=== PATIENT | male | born 1935 | race Caucasian/White ===

== ENCOUNTER 2017-06-30 14:26 | Observation (INO) | payer MEDICARE, OTHER ==
[~2017-06-30] VITALS: Ht 188 cm; Wt 87.9 kg
[2017-06-30 14:30] VITALS: BP 110/76; PULSE 102; RESP 18; TEMP 103; O2SAT 94
[2017-06-30] MEDS ORDERED: SODIUM CHLOR 0.9% 1000 ML INJ 1,000 ML IV ONE (14:30)
--- NOTE | 2017-06-30 14:34 | PD ---
HPI Chief Complaint: fever Time Seen by Provider: 14:29 Travel History International Travel<30 days: No Contact w/Intl Traveler<30days: No Traveled to known affect area: No History of Present Illness HPI This 81-year-old male comes by ambulance. He has been having fever for a couple of days. He has had a cough. He has had urinary tract infections past. He's been feeling very weak. He was brought by paramedics report that he had trouble walking. He has a history of atrial fibrillation and is on Eliquis. He lives in [place] does not have a local doctor. He says he has felt confused at times. He says he may have had a stroke in 2003. He says he has not been eating. He has not been able to stand up for the last day or so. He says when he does try to stand up he gets very dizzy. PFSH Social History Tobacco Use: No Allergies-Medications (Allergen,Severity, Reaction): Coded Allergies: No Known Allergies (Unverified , 06/30/17) Reported Meds & Prescriptions Reported Meds & Active Scripts Active Reported Terazosin (Terazosin HCl) 5 Mg Cap 5 Mg PO HS Pravastatin 40 Mg Tab 40 Mg PO DAILY Diltiazem CD 24 HR 120 Mg Caper 120 Mg PO DAILY Eliquis (Apixaban) 2.5 Mg Tab 2.5 Mg PO BID Carvedilol 12.5 Mg Tab 12.5 Mg PO BID Review of Systems General / Constitutional: Positive: Fever, Chills Eyes: No: Diploplia, Blurred Vision HENT: No: Headaches, Vertigo Cardiovascular: No: Chest Pain or Discomfort Respiratory: Positive: Cough, No: Shortness of Breath Gastrointestinal: No: Vomiting, Diarrhea Genitourinary: No: Urgency Musculoskeletal: No: Myalgias Skin: No Rash Neurologic: Positive: Weakness Hematologic/Lymphatic: No: Easy Bruising Physical Exam Narrative GENERAL: Well-developed male. Temp is 103 SKIN: Focused skin assessment warm/dry. HEAD: Atraumatic. Normocephalic. EYES: Pupils equal and round. No scleral icterus. No injection or drainage. ENT: No nasal bleeding or discharge. Mucous membranes pink and moist. NECK: Trachea midline. No JVD. CARDIOVASCULAR: Regular rate and rhythm. No murmur appreciated. RESPIRATORY: No accessory muscle use. Clear to auscultation. Breath sounds equal bilaterally. GASTROINTESTINAL: Abdomen soft, non-tender, nondistended. Hepatic and splenic margins not palpable. MUSCULOSKELETAL: No obvious deformities. No clubbing. No cyanosis. No edema. There is some weakness of the left hand. He has a history of a laceration to the hand with tendon injury NEUROLOGICAL: Awake and alert. No obvious cranial nerve deficits. Motor grossly within normal limits. Normal speech. PSYCHIATRIC: Appropriate mood and affect; insight and judgment normal. He is oriented Data Data Last Documented VS Vital Signs Date Time Temp Pulse Resp B/P (MAP) Pulse Ox O2 Delivery O2 Flow Rate FiO2 06/30/17 15:15 103.0 103 16 110/75 (87) 98 Nasal Cannula 2.00 Orders Orders Sepsis Workup Initiated (06/30/17 ) Complete Blood Count With Diff (06/30/17 14:29) Comprehensive Metabolic Panel (06/30/17 14:29) Lactic Acid Sepsis Protocol (06/30/17 14:29) Urinalysis - C+S If Indicated (06/30/17 14:29) Influenzae A/B Antigen (06/30/17 14:29) Blood Culture (06/30/17 14:29) Chest, Single Ap (06/30/17 14:29) Blood Glucose (06/30/17 14:29) Ecg Monitoring (06/30/17 14:29) Iv Access Insert/Monitor (06/30/17 14:29) Oximetry (06/30/17 14:29) Oxygen Administration (06/30/17 14:29) Sodium Chlor 0.9% 1000 Ml Inj (Ns 1000 M (06/30/17 14:30) Acetaminophen (Tylenol) (06/30/17 14:45) Ct Brain W/O Iv Contrast(Rout) (06/30/17 15:04) Ct Thorax/ Chest Wo Iv Contras (06/30/17 15:31) Oseltamivir (Tamiflu) (06/30/17 15:45) Labs Laboratory Tests Test 06/30/17 14:35 06/30/17 14:46 White Blood Count 5.6 TH/MM3 Red Blood Count 4.48 MIL/MM3 Hemoglobin 13.7 GM/DL Hematocrit 40.6 % Mean Corpuscular Volume 90.8 FL Mean Corpuscular Hemoglobin 30.7 PG Mean Corpuscular Hemoglobin Concent 33.8 % Red Cell Distribution Width 13.5 % Platelet Count 111 TH/MM3 Mean Platelet Volume 8.8 FL Neutrophils (%) (Auto) 68.6 % Lymphocytes (%) (Auto) 17.0 % Monocytes (%) (Auto) 13.7 % Eosinophils (%) (Auto) 0.1 % Basophils (%) (Auto) 0.6 % Neutrophils # (Auto) 3.9 TH/MM3 Lymphocytes # (Auto) 0.9 TH/MM3 Monocytes # (Auto) 0.8 TH/MM3 Eosinophils # (Auto) 0.0 TH/MM3 Basophils # (Auto) 0.0 TH/MM3 CBC Comment DIFF FINAL Differential Comment Blood Urea Nitrogen 15 MG/DL Creatinine 0.89 MG/DL Random Glucose 107 MG/DL Total Protein 6.6 GM/DL Albumin 3.2 GM/DL Calcium Level 7.8 MG/DL Alkaline Phosphatase 51 U/L Aspartate Amino Transf (AST/SGOT) 27 U/L Alanine Aminotransferase (ALT/SGPT) 22 U/L Total Bilirubin 0.8 MG/DL Sodium Level 136 MEQ/L Potassium Level 4.1 MEQ/L Chloride Level 105 MEQ/L Carbon Dioxide Level 22.2 MEQ/L Anion Gap 9 MEQ/L Estimat Glomerular Filtration Rate 82 ML/MIN Lactic Acid Level 1.5 mmol/L Urine Collection Type VOIDED Urine Color YELLOW Urine Turbidity CLEAR Urine pH 6.0 Urine Specific [place] 1.024 Urine Protein TRACE mg/dL Urine Glucose (UA) NEG mg/dL Urine Ketones 15 mg/dL Urine Occult Blood SMALL Urine Nitrite NEG Urine Bilirubin NEG Urine Leukocyte Esterase NEG Urine WBC 3-5 /hpf Urine Squamous Epithelial Cells 0-2 /hpf Urine Mucus FEW /lpf Microscopic Urinalysis Comment CULT NOT INDICATED MDM Medical Decision Making Medical Screen Exam Complete: Yes Emergency Medical Condition: Yes Medical Record Reviewed: Yes Differential Diagnosis Differential includes influenza, delirium, pneumonia, sepsis Narrative Course Hemoglobin is 13 7 with a white count of 5000 BUNs is 15 with creatinine of 0.89. Urinalysis shows 3-5 white cells. Chest x-ray showed bilateral patchy densities it is thought this may represent pleural plaques, CT is recommended. of note his influenza A test is positive. Patient has been given Tamiflu. I don't see evidence of a bacterial infection but his fever is causing delirium and prostration. He will be admitted for fluids and observation Diagnosis Primary Impression: Influenza A Additional Impression: Delirium due to general medical condition Admitting Information Admitting Physician Requests: Observation Jeb Kyle MD Jun 30, 2017 14:34
[2017-06-30] MEDS ORDERED: ACETAMINOPHEN 325 MG TAB PO ONE (14:45)
[2017-06-30 14:52] VITALS: O2SAT 95
[2017-06-30 14:52] LABS: AUTOMATED NEUTROPHIL # 3.9 TH/MM3 (1.8-7.7); BASOPHIL % 0.6 % (0.0-2.0); EOSINOPHIL % 0.1 % (0.0-4.0); HEMATOCRIT 40.6 % (39.0-51.0); HEMO FLAGS DIFF FINAL; LYMPHOCYTE # 0.9 TH/MM3 (1.0-4.8); MEAN CELL VOLUME 90.8 FL (80.0-100.0); MEAN CORPUSCULAR HEMOGLOBIN 30.7 PG (27.0-34.0); MEAN CORPUSCULAR HGB CONC 33.8 % (32.0-36.0); MONO % 13.7 % (0.0-8.0); NEUT % 68.6 % (16.0-70.0); PLATELET COUNT 111 TH/MM3 (150-450); RED BLOOD COUNT 4.48 MIL/MM3 (4.50-5.90); RED CELL DISTRIBUTION WIDTH 13.5 % (11.6-17.2); WHITE BLOOD COUNT 5.6 TH/MM3 (4.0-11.0)
[2017-06-30 14:56] LABS: BLOOD, URINE SMALL (NEG); GLUCOSE,URINE NEG (NEG); KETONE, URINE 15 mg/dL (NEG); NITRITE,URINE NEG (NEG)
[2017-06-30 14:56] LABS: CHLORIDE 105 MEQ/L (98-107); POTASSIUM 4.1 MEQ/L (3.5-5.1); SODIUM (NA) 136 MEQ/L (136-145)
[2017-06-30 15:00] LABS: ANION GAP 9 MEQ/L (5-15); BICARBONATE 22.2 MEQ/L (21.0-32.0); BLOOD UREA NITROGEN 15 MG/DL (7-18)
[2017-06-30 15:03] LABS: ALT (GPT) 22 U/L (12-78); AST (GOT) 27 U/L (15-37); GLOMERULAR FILTRATION RATE 82 ML/MIN (>89)
[2017-06-30 15:05] LABS: TOTAL BILIRUBIN ADULT 0.8 MG/DL (0.2-1.0)
[2017-06-30 15:06] LABS: ALKALINE PHOSPHATASE 51 U/L (45-117)
[2017-06-30] MEDS ORDERED: CARV12.52 PO (15:13)
[2017-06-30] MEDS ORDERED: PRAV40TA2 PO (15:13)
[2017-06-30] MEDS ORDERED: DILT120C50 PO (15:13)
[2017-06-30] MEDS ORDERED: APIX2.5T PO (15:13)
[2017-06-30] MEDS ORDERED: TERA5CAP3 PO (15:13)
[2017-06-30 15:15] VITALS: BP 110/75; PULSE 103; RESP 16; TEMP 103; O2SAT 98
[2017-06-30 15:15] LABS: URINE COLOR YELLOW (YELLW/STRAW)
[2017-06-30 15:16] LABS: MUCUS URINE FEW /lpf (OCC); SQUAMOUS EPITHELIAL CELL URINE 0-2 /hpf (0-5)
[2017-06-30 15:20] LABS: COMMENT (UR) CULT NOT INDICATED; CULTURE IF INDICATED CULT NOT INDICATED; METHOD OF COLLECTION VOIDED
--- NOTE | 2017-06-30 15:24 | RADRPT ---
EXAM DATE/TIME: 06/30/2017 14:48 [facility] COMPARISON: No previous studies available for comparison. INDICATIONS : Fever MEDICAL HISTORY : None. SURGICAL HISTORY : None. ENCOUNTER: Initial ACUITY: 1 day PAIN SCORE: 0/10 LOCATION: Bilateral chest FINDINGS: A single portable frontal view the chest shows cardiomegaly. No pulmonary vascular engorgement observ ed. Patchy areas of density seen throughout both hemithoraces. These are quite distinct in nature. No effusions. CONCLUSION: 1. Densities overlying both hemithoraces are felt to relate to partially calcified pleural plaques. C T scan of the thorax could be performed to confirm this. 2. Cardiomegaly. Jovan Lamb Jr., MD on June 30, 2017 at 15:21 Board Certified Radiologist. This report was verified electronically.
[2017-06-30] MEDS ORDERED: OSELTAMIVIR PHOSPHATE 75 MG CAP PO ONE (15:45)
--- NOTE | 2017-06-30 16:26 | RADRPT ---
EXAM DATE/TIME: 06/30/2017 15:30 [facility] COMPARISON: No previous studies available for comparison. INDICATIONS : Abnormal chest radiograph. RADIATION DOSE: 11.29 CTDIvol (mGy) MEDICAL HISTORY : Hypertension. SURGICAL HISTORY : None. ENCOUNTER: Initial ACUITY: 1 day PAIN SCALE: 5/10 LOCATION: chest TECHNIQUE: Volumetric scanning of the chest was performed. Using automated exposure control and adjustment of t he mA and/or kV according to patient size, radiation dose was kept as low as reasonably achievable to obtain optimal diagnostic quality images. DICOM format image data is available electronically for r eview and comparison. Follow-up recommendations for detected pulmonary nodules are based at a minimum on nodule size and pa tient risk factors according to Fleischner Society Guidelines. FINDINGS: Multiple calcified pleural plaques are evident. There is no pleural effusion. There is no axillary or mediastinal adenopathy appreciated. Moderate coronary calcifications are evident. Upper abdomen unremarkable. CONCLUSION: Extensive calcific plaque without pleural effusion. Note seen consolidation. Given the history screening CT scan of chest would be of benefit yearly Tulio Guerrero MD FACR on June 30, 2017 at 16:22 Board Certified Radiologist. This report was verified electronically.
--- NOTE | 2017-06-30 16:33 | RADRPT ---
EXAM DATE/TIME: 06/30/2017 15:27 [facility] COMPARISON: No previous studies available for comparison. INDICATIONS : Dizziness. RADIATION DOSE: 59.84 CTDIvol (mGy) MEDICAL HISTORY : Hypertension. Cerebrovascular disease. SURGICAL HISTORY : None. ENCOUNTER: Initial ACUITY: 1 day PAIN SCALE: 5/10 LOCATION: cranial TECHNIQUE: Multiple contiguous axial images were obtained of the head. Using automated exposure control and adj ustment of the mA and/or kV according to patient size, radiation dose was kept as low as reasonably a chievable to obtain optimal diagnostic quality images. DICOM format image data is available electro nically for review and comparison. FINDINGS: CEREBRUM: The ventricles are normal for age. No evidence of midline shift, mass lesion, hemorrhage or acute in farction. No extra-axial fluid collections are seen. POSTERIOR FOSSA: The cerebellum and brainstem are intact. The 4th ventricle is midline. The cerebellopontine angle i s unremarkable. EXTRACRANIAL: The visualized portion of the orbits is intact. Mild mucosal thickening involving the right sphenoid sinus. Remaining paranasal sinuses are clear. SKULL: The calvaria is intact. No evidence of skull fracture. CONCLUSION: No acute disease. Jovan Lamb Jr., MD on June 30, 2017 at 16:29 Board Certified Radiologist. This report was verified electronically.
--- NOTE | 2017-06-30 16:58 | HHI.HP ---
[facility] No Primary Care Physician Admission Diagnosis INFLUENZA A, DELIRIUM Diagnoses: Chief Complaint: weakness and fever Travel History International Travel<30 Days: No Contact w/Intl Traveler <30 Da: No Traveled to Known Affected Are: No History of Present Illness Patient is an 81 year old male with a history of afib who has 3 days of fever and malaise. He could not get out of bed today and called the ambulance. He had a fever at home and it was 103 in the ER. His flu was positive despite having the flu shot. His has the flu also. He had no nausea, vomiting of pain and really just felt bad. He was unable to eat or drink. He was verry dizzy. He is admitted for observation. Review of Systems Constitutional: COMPLAINS OF: Fever, Change in appetite, DENIES: Diaphoretic episodes, Fatigue, Weight gain, Weight loss, Chills, Dizziness, Night Sweats Endocrine: DENIES: Heat/cold intolerance, Polydipsia, Polyuria, Polyphagia Eyes: DENIES: Blurred vision, Diplopia, Eye inflammation, Eye pain, Vision loss , Photosensitivity, Double Vision Ears, nose, mouth, throat: DENIES: Tinnitus, Hearing loss, Vertigo, Nasal discharge, Oral lesions, Throat pain, Hoarseness, Ear Pain, Running Nose, Epistaxis, Sinus Pain, Toothache, Odynophagia Respiratory: DENIES: Apneas, Cough, Snoring, Wheezing, Hemoptysis, Sputum production, Shortness of breath Cardiovascular: DENIES: Chest pain, Palpitations, Syncope, Dyspnea on Exertion , PND, Lower Extremity Edema, Orthopnea, Claudication Gastrointestinal: DENIES: Abdominal pain, Black stools, Bloody stools, Constipation, Diarrhea, Nausea, Vomiting, Difficulty Swallowing, Anorexia Genitourinary: DENIES: Sexual dysfunction, Urinary frequency, Urinary incontinence, Urgency, Hematuria, Dysuria, Nocturia, Penile Discharge, Testicular Pain, Testicular Swelling Musculoskeletal: DENIES: Joint pain, Muscle aches, Stiffness, Joint Swelling, Back pain, Neck pain Hematologic/lymphatic: DENIES: Bruising, Lymphadenopathy Neurologic: DENIES: Abnormal gait, Headache, Localized weakness, Paresthesias, Seizures, Speech Problems, Tremor, Poor Balance Psychiatric: DENIES: Anxiety, Confusion, Mood changes, Depression, Hallucinations, Agitation, Suicidal Ideation, Homicidal Ideation, Delusions Except as stated in HPI: all other systems reviewed are Neg Past Family Social History Past Medical History afib htn hyperlipidemia 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 Past Surgical History left hand tendon repair left hernia mesh Reported Medications reviewed in he EMR Allergies: Coded Allergies: No Known Allergies (Unverified , 06/30/17) Active Ordered Medications reviewed in the emr Family History mom cancer dad heart Social History no tobacco no etoh asbestos exposure from [place] for the winter beer daily Physical Exam Vital Signs Vital Signs Date Time Temp Pulse Resp B/P (MAP) Pulse Ox O2 Delivery O2 Flow Rate FiO2 06/30/17 15:15 103.0 103 16 110/75 (87) 98 Nasal Cannula 2.00 06/30/17 14:52 95 Nasal Cannula 2.00 06/30/17 14:52 95 2.00 06/30/17 14:30 103.0 102 18 110/76 (87) 94 Physical Exam GENERAL: This is a well-nourished, well-developed patient, in no apparent distress. SKIN: No rashes, ecchymoses or lesions. Cool and dry. HEAD: Atraumatic. Normocephalic. No temporal or scalp tenderness. EYES: Pupils equal round and reactive. Extraocular motions intact. No scleral icterus. No injection or drainage. ENT: Nose without bleeding, purulent drainage or septal hematoma. Throat without erythema, tonsillar hypertrophy or exudate. Uvula midline. Airway patent. NECK: Trachea midline. No JVD or lymphadenopathy. Supple, nontender, no meningeal signs. CARDIOVASCULAR:afib regular rate without murmurs, gallops, or rubs. RESPIRATORY: Clear to auscultation. Breath sounds equal bilaterally. No wheezes , rales, or rhonchi. GASTROINTESTINAL: Abdomen soft, non-tender, nondistended. No hepato-splenomegaly , or palpable masses. No guarding. MUSCULOSKELETAL: Extremities without clubbing, cyanosis, or edema. No joint tenderness, effusion, or edema noted. No calf tenderness. Negative Homans sign bilaterally. NEUROLOGICAL: Awake and alert. Cranial nerves II through XII intact. Motor and sensory grossly within normal limits. Five out of 5 muscle strength in all muscle groups. Normal speech. Laboratory Laboratory Tests Test 06/30/17 14:35 06/30/17 14:46 White Blood Count 5.6 Red Blood Count 4.48 Hemoglobin 13.7 Hematocrit 40.6 Mean Corpuscular Volume 90.8 Mean Corpuscular Hemoglobin 30.7 Mean Corpuscular Hemoglobin Concent 33.8 Red Cell Distribution Width 13.5 Platelet Count 111 Mean Platelet Volume 8.8 Neutrophils (%) (Auto) 68.6 Lymphocytes (%) (Auto) 17.0 Monocytes (%) (Auto) 13.7 Eosinophils (%) (Auto) 0.1 Basophils (%) (Auto) 0.6 Neutrophils # (Auto) 3.9 Lymphocytes # (Auto) 0.9 Monocytes # (Auto) 0.8 Eosinophils # (Auto) 0.0 Basophils # (Auto) 0.0 CBC Comment DIFF FINAL Differential Comment Blood Urea Nitrogen 15 Creatinine 0.89 Random Glucose 107 Total Protein 6.6 Albumin 3.2 Calcium Level 7.8 Alkaline Phosphatase 51 Aspartate Amino Transf (AST/SGOT) 27 Alanine Aminotransferase (ALT/SGPT) 22 Total Bilirubin 0.8 Sodium Level 136 Potassium Level 4.1 Chloride Level 105 Carbon Dioxide Level 22.2 Anion Gap 9 Estimat Glomerular Filtration Rate 82 Lactic Acid Level 1.5 Urine Collection Type VOIDED Urine Color YELLOW Urine Turbidity CLEAR Urine pH 6.0 Urine Specific [place] 1.024 Urine Protein TRACE Urine Glucose (UA) NEG Urine Ketones 15 Urine Occult Blood SMALL Urine Nitrite NEG Urine Bilirubin NEG Urine Leukocyte Esterase NEG Urine WBC 3-5 Urine Squamous Epithelial Cells 0-2 Urine Mucus FEW Microscopic Urinalysis Comment CULT NOT INDICATED Date/Time Source Procedure Growth Status 06/30/17 14:40 Blood Peripheral Aerobic Blood Culture Pending Received 06/30/17 14:40 Blood Peripheral Anaerobic Blood Culture Pending Received 06/30/17 14:46 Nasal Aspirate Influenza Types A,B Antigen (JAYNA) - Final Positive For Flu A Antigen Complete Result Diagram: 06/30/17 1435 06/30/17 1435 Imaging Last Impressions Chest CT 06/30/17 1531 Signed Impressions: Service Date/Time: Friday, June 30, 2017 15:30 - CONCLUSION: Extensive calcific plaque without pleural effusion. Note seen consolidation. Given the history screening CT scan of chest would be of benefit yearly Tulio Guerrero MD FACR Head CT 06/30/17 1504 Signed Impressions: Service Date/Time: Friday, June 30, 2017 15:27 - CONCLUSION: No acute disease. Jovan Lamb Jr., MD Chest X-Ray 06/30/17 1429 Signed Impressions: Service Date/Time: Friday, June 30, 2017 14:48 - CONCLUSION: 1. Densities overlying both hemithoraces are felt to relate to partially calcified pleural plaques. CT scan of the thorax could be performed to confirm this. 2. Cardiomegaly. MD Rubi Hedrick Jr. VTE Risk Assessment Caprinjennifer VTE Risk Assessment: Mod/High Risk (score >= 2) VTE Pharm Contraindication: Coagulopathy,INR elevated Caprini Risk Assessment Model Point Value = 1 Point Value = 2 Point Value = 3 Point Value = 5 Age 41-60 Minor surgery BMI > 25 kg/m2 Swollen legs Varicose veins or History of unexplained or recurrent spontaneous Oral contraceptives or hormone replacement Sepsis (< 1 month) Serious lung disease, including pneumonia (< 1 month) Abnormal pulmonary function Acute myocardial infarction Congestive heart failure (< 1 month) History of inflammatory bowel disease Medical patient at bed rest Age 61-74 Arthroscopic surgery Major open surgery (> 45 min) Laparoscopic surgery (> 45 min) Malignancy Confined to bed (> 72 hours) Immobilizing plaster cast Central venous access Age >= 75 History of VTE Family history of VTE Factor V Leiden Prothrombin [id number] Lupus anticoagulant Anticardiolipin antibodies Elevated serum homocysteine Heparin-induced thrombocytopenia Other congenital or acquired thrombophilia Stroke (< 1 month) Elective arthroplasty Hip, pelvis, or leg fracture Acute spinal cord injury (< 1 month) Prophylaxis Regimen Total Risk Factor Score Risk Level Prophylaxis Regimen 0-1 Low Early ambulation 2 Moderate Order ONE of the following: *Sequential Compression Device (SCD) *Heparin 5000 units SQ BID 3-4 Higher Order ONE of the following medications: *Heparin 5000 units SQ TID *Enoxaparin/Lovenox 40 mg SQ daily (WT < 150 kg, CrCl > 30 mL/min) *Enoxaparin/Lovenox 30 mg SQ daily (WT < 150 kg, CrCl > 10-29 mL/min) *Enoxaparin/Lovenox 30 mg SQ BID (WT < 150 kg, CrCl > 30 mL/min) AND/OR *Sequential Compression Device (SCD) 5 or more Highest Order ONE of the following medications: *Heparin 5000 units SQ TID (Preferred with Epidurals) *Enoxaparin/Lovenox 40 mg SQ daily (WT < 150 kg, CrCl > 30 mL/min) *Enoxaparin/Lovenox 30 mg SQ daily (WT < 150 kg, CrCl > 10-29 mL/min) *Enoxaparin/Lovenox 30 mg SQ BID (WT < 150 kg, CrCl > 30 mL/min) AND *Sequential Compression Device (SCD) Assessment and Plan Problem List: (1) Influenza A ICD Code: J10.1 - Influenza due to other identified influenza virus with other respiratory manifestations Status: Acute Plan: ivf tamiflu/tylenol observation (2) Afib ICD Code: I48.91 - Unspecified atrial fibrillation Status: Chronic Plan: eliquis/diltiazem rate controlled (3) Hyperlipidemia ICD Code: E78.5 - Hyperlipidemia, unspecified Status: Chronic Plan: statin (4) HTN (hypertension) ICD Code: I10 - Essential (primary) hypertension Status: Chronic Plan: carvedilol controlled Code Status full code Discussed Condition With patient, er md Oro,Avril New MD Jun 30, 2017 16:58
[2017-06-30] MEDS ORDERED: NALOXONE HCL 0.4 MG/ML AMP IV PUSH PRN (17:00)
[2017-06-30] MEDS ORDERED: ONDANSETRON HCL 4 MG/2 ML VIAL IVP PRN (17:00)
[2017-06-30] MEDS ORDERED: SODIUM CHLORIDE 0.9% FLUSH 10 ML FLUSH IV FLUSH PRN (17:00)
[2017-06-30 17:54] VITALS: BP 110/66; PULSE 85; RESP 16; TEMP 100.4; O2SAT 98
[2017-06-30] MEDS: SODIUM CHLOR 0.9% 1000 ML INJ 1,000 ML IV SCH (18:03)
[2017-06-30 20:00] VITALS: BP 115/69; PULSE 93; RESP 20; TEMP 98.5; O2SAT 98
[2017-06-30] MEDS: SODIUM CHLORIDE 0.9% FLUSH 10 ML FLUSH IV FLUSH SCH (20:28)
[2017-06-30] MEDS: CARVEDILOL 12.5 MG TAB PO SCH (20:28)
[2017-06-30] MEDS: PRAVASTATIN SOD 40 MG TAB PO SCH (20:28)
[2017-06-30] MEDS: APIXABAN 2.5 MG TABLET PO SCH (20:28)
[2017-06-30] MEDS: TERAZOSIN HCL 5 MG CAP PO SCH (20:28)
[2017-06-30] MEDS: ACETAMINOPHEN 325 MG TAB PO PRN (23:51)
[2017-07-01] VITALS (7 sets, daily range): BP systolic 111–131; BP diastolic 74–81; PULSE 93–111; RESP 15–20; TEMP 97.8–102.9; O2SAT 94–98
[2017-07-01] MEDS: SODIUM CHLOR 0.9% 1000 ML INJ 1,000 ML IV SCH ×3 (03:06→13:05)
[2017-07-01] MEDS: ACETAMINOPHEN 325 MG TAB PO PRN ×2 (05:23→09:55)
[2017-07-01] MEDS: SODIUM CHLORIDE 0.9% FLUSH 10 ML FLUSH IV FLUSH SCH ×2 (09:00→20:40)
[2017-07-01] MEDS: CARVEDILOL 12.5 MG TAB PO SCH ×2 (09:55→20:40)
[2017-07-01] MEDS: OSELTAMIVIR PHOSPHATE 75 MG CAP PO SCH ×2 (09:56→20:40)
[2017-07-01] MEDS: APIXABAN 2.5 MG TABLET PO SCH ×2 (09:56→20:41)
[2017-07-01] MEDS: DILTIAZEM-CD 120 MG CAP ER PO SCH (09:56)
--- NOTE | 2017-07-01 12:33 | HHI.PR ---
Subjective Remarks Patient seen and examined today for follow-up on febrile illness, delirium. Patient alert and orientated today. Still with fever, MAXIMUM TEMPERATURE 102.5. Patient indicates that he is been having diarrhea with consistency of a watered-down chocolate milkshake. He has had fecal incontinence secondary to diarrhea. Objective Vital Signs Date Time Temp Pulse Resp B/P (MAP) Pulse Ox O2 Delivery O2 Flow Rate FiO2 07/01/17 12:04 100.2 105 20 119/77 (91) 97 07/01/17 08:09 101.0 108 20 125/75 (92) 94 07/01/17 07:00 94 Nasal Cannula 2.00 07/01/17 05:25 102.5 07/01/17 02:30 99.8 07/01/17 00:00 102.9 111 18 131/75 (93) 95 06/30/17 21:30 98 Nasal Cannula 2.00 06/30/17 20:00 98.5 93 20 115/69 (84) 98 06/30/17 18:35 06/30/17 17:54 100.4 85 16 110/66 (81) 98 Room Air 06/30/17 15:15 103.0 103 16 110/75 (87) 98 Nasal Cannula 2.00 06/30/17 14:52 95 Nasal Cannula 2.00 06/30/17 14:52 95 2.00 06/30/17 14:30 103.0 102 18 110/76 (87) 94 I/O 06/30/17 06/30/17 06/30/17 07/01/17 07/01/17 07/01/17 07:00 15:00 23:00 07:00 15:00 23:00 Intake Total 2091.00 ml 1771 ml Balance 2091.00 ml 1771 ml Intake Oral 760 ml IV Total 2091.00 ml 1011 ml # Voids 5 # Bowel Movements 4 Result Diagram: 06/30/17 1435 06/30/17 1435 Imaging Last Impressions Chest CT 06/30/17 1531 Signed Impressions: Service Date/Time: Friday, June 30, 2017 15:30 - CONCLUSION: Extensive calcific plaque without pleural effusion. Note seen consolidation. Given the history screening CT scan of chest would be of benefit yearly Tulio Guerrero MD FACR Head CT 06/30/17 1504 Signed Impressions: Service Date/Time: Friday, June 30, 2017 15:27 - CONCLUSION: No acute disease. Jovan Lamb Jr., MD Chest X-Ray 06/30/17 1429 Signed Impressions: Service Date/Time: Friday, June 30, 2017 14:48 - CONCLUSION: 1. Densities overlying both hemithoraces are felt to relate to partially calcified pleural plaques. CT scan of the thorax could be performed to confirm this. 2. Cardiomegaly. Jovan Lamb Jr., MD Objective Remarks GENERAL: Well-developed, well-nourished, in no acute distress. alert and orientated HEENT: Head is normocephalic without any lesions or masses noted. Facial features are symmetric. Eyes: Extraocular muscles are intact. Conjunctivae were clear. Oropharyngeal: NECK: Supple without any masses. Trachea midline no deviation. No JVD, CARDIAC: Regular rhythm, regular rate. S1/S2 are heard. No murmurs gallops or rubs. LUNGS: Clear to auscultation bilaterally. No wheeze, rhonchi or rales. No use of accessory muscles on inspiration or expiration. ABDOMEN: Soft, nontender. Nondistended. Bowel sounds heard in all 4 quadrants. No organomegaly or masses. Negative rebound, negative guarding EXTREMITIES: No edema, pulses are equal bilaterally. No cyanosis or clubbing NEUROLOGY: Mood and affect appear appropriate. Cranial nerves II through XII grossly intact. Moving all extremities, speech is clear A/P Assessment and Plan Sepsis Patient presented with febrile illness, tachycardia, influenza a infection Continue supportive treatment with Tamiflu, Tylenol as needed for fever IV hydration Diarrhea illness Could be secondary to vital infection Check C. difficile, enteric pathogen culture, stool for WBC Chronic atrial fibrillation Home medications continued to include Cardizem Anticoagulated on Eliquis Hypertension, hyperlipidemia Patient's home medications have been continued Blood pressure is stable DVT prevention Patient is on Eliquis Discharge Planning Discharge planning in 24-48 hours once afebrile Jose G Paniagua Jul 01, 2017 12:32
[2017-07-01] MEDS: BENZOCAINE-MENTHOL (SUGAR FREE) 15 MG-3.6 MG LOZENGE BUCCAL PRN ×2 (17:06→20:41)
[2017-07-01 19:43] LABS: C. DIFF EPI 027 PRESUMPTIVE NEGATIVE (NEGATIVE)
[2017-07-01] MEDS: PRAVASTATIN SOD 40 MG TAB PO SCH (20:40)
[2017-07-01] MEDS: TERAZOSIN HCL 5 MG CAP PO SCH (20:40)
[2017-07-02] VITALS: BP 108/71; PULSE 90; RESP 18; TEMP 98.1; O2SAT 99
[2017-07-02] MEDS: SODIUM CHLOR 0.9% 1000 ML INJ 1,000 ML IV SCH ×2 (01:14→13:01)
[2017-07-02] MEDS: metroNIDAZOLE 500 MG TAB PO SCH ×3 (02:29→13:00)
[2017-07-02 06:37] LABS: BICARBONATE 29.3 MEQ/L (21.0-32.0)
[2017-07-02 06:44] LABS: AUTOMATED NEUTROPHIL # 4.2 TH/MM3 (1.8-7.7); BASOPHIL % 0.2 % (0.0-2.0); EOSINOPHIL # 0.1 TH/MM3 (0-0.4); EOSINOPHIL % 0.8 % (0.0-4.0); HEMATOCRIT 39.3 % (39.0-51.0); LYMPH % 28.8 % (9.0-44.0); LYMPHOCYTE # 2.1 TH/MM3 (1.0-4.8); MEAN CELL VOLUME 93.8 FL (80.0-100.0); MEAN CORPUSCULAR HEMOGLOBIN 30.4 PG (27.0-34.0); MEAN CORPUSCULAR HGB CONC 32.4 % (32.0-36.0); MONO % 10.8 % (0.0-8.0); NEUT % 59.4 % (16.0-70.0); PLATELET COUNT 83 TH/MM3 (150-450); RED BLOOD COUNT 4.19 MIL/MM3 (4.50-5.90); WHITE BLOOD COUNT 7.2 TH/MM3 (4.0-11.0)
[2017-07-02 06:58] LABS: HEMO FLAGS AUTO DIFF
[2017-07-02 07:45] LABS: PLATELET ESTIMATE SMEAR LOW (NORMAL); PLATELET MORPHOLOGY NORMAL (NORMAL); SCAN/DIFF AUTO DIFF CONFIRMED
[2017-07-02 08:00] VITALS: BP 121/80; PULSE 104; RESP 14; TEMP 97.9; O2SAT 95
[2017-07-02] MEDS: SODIUM CHLORIDE 0.9% FLUSH 10 ML FLUSH IV FLUSH SCH (09:00)
[2017-07-02] MEDS: DILTIAZEM-CD 120 MG CAP ER PO SCH (09:23)
[2017-07-02] MEDS: APIXABAN 2.5 MG TABLET PO SCH (09:24)
[2017-07-02] MEDS: OSELTAMIVIR PHOSPHATE 75 MG CAP PO SCH (09:24)
[2017-07-02] MEDS: CARVEDILOL 12.5 MG TAB PO SCH (09:24)
[2017-07-02 12:00] VITALS: BP 118/79; PULSE 108; RESP 14; TEMP 96.7; O2SAT 94
[2017-07-02] MEDS ORDERED: OSEL75 PO (14:58)
[2017-07-02] MEDS ORDERED: METR-1 PO (14:58)
--- NOTE | 2017-07-02 14:59 | HHI.DCPOC ---
Discharge Care Plan Diagnosis: (1) Influenza A (2) Clostridium difficile infection Goals to Promote Your Health * To prevent worsening of your condition and complications * To maintain your health at the optimal level Directions to Meet Your Goals Take your medications as prescribed Follow your dietary instruction Follow activity as directed Keep your appointments as scheduled Take your immunizations and boosters as scheduled If your symptoms worsen call your PCP, if no PCP go to Urgent Care Center or Emergency Room Smoking is Dangerous to Your Health. Avoid second hand smoke Call the 24-hour hour crisis hotline for domestic abuse at Jose G Paniagua Jul 02, 2017 14:59
--- NOTE | 2017-07-02 15:12 | HHI.DS ---
Discharge Summary Admission Date Jun 30, 2017 at 16:25 Discharge Date: Jul 02, 2017 Admitting Diagnosis INFLUENZA A, DELIRIUM (1) Influenza A ICD Code: J10.1 - Influenza due to other identified influenza virus with other respiratory manifestations Status: Acute (2) Afib ICD Code: I48.91 - Unspecified atrial fibrillation Status: Chronic (3) Hyperlipidemia ICD Code: E78.5 - Hyperlipidemia, unspecified Status: Chronic (4) HTN (hypertension) ICD Code: I10 - Essential (primary) hypertension Status: Chronic Procedures None Brief History - From Admission Patient is an 81 year old male with a history of afib who has 3 days of fever and malaise. He could not get out of bed today and called the ambulance. He had a fever at home and it was 103 in the ER. His flu was positive despite having the flu shot. His has the flu also. He had no nausea, vomiting of pain and really just felt bad. He was unable to eat or drink. He was verry dizzy. He is admitted for observation. CBC/BMP: 07/02/17 0537 07/02/17 0537 Significant Findings Laboratory Tests Test 06/30/17 14:35 06/30/17 14:46 07/01/17 13:55 07/02/17 05:37 Red Blood Count 4.48 MIL/MM3 (4.50-5.90) 4.19 MIL/MM3 (4.50-5.90) Platelet Count 111 TH/MM3 (150-450) 83 TH/MM3 (150-450) Monocytes (%) (Auto) 13.7 % (0.0-8.0) 10.8 % (0.0-8.0) Lymphocytes # (Auto) 0.9 TH/MM3 (1.0-4.8) Random Glucose 107 MG/DL (74-106) Albumin 3.2 GM/DL (3.4-5.0) Calcium Level 7.8 MG/DL (8.5-10.1) 7.7 MG/DL (8.5-10.1) Estimat Glomerular Filtration Rate 82 ML/MIN (>89) Urine Ketones 15 mg/dL (NEG) Urine Occult Blood SMALL (NEG) Urine Mucus FEW /lpf (OCC) Stool C. difficile Toxin (PCR) POSITIVE (NEGATIVE) Hemoglobin 12.7 GM/DL (13.0-17.0) Platelet Estimate LOW (NORMAL) Imaging Reported Meds & Active Scripts Active Flagyl (Metronidazole) 500 Mg Tab 500 Mg PO Q8HR 14 Days Tamiflu (Oseltamivir Phosphate) 75 Mg Cap 75 Mg PO BID 3 Days Reported Terazosin (Terazosin HCl) 5 Mg Cap 5 Mg PO HS Pravastatin 40 Mg Tab 40 Mg PO DAILY Diltiazem CD 24 HR 120 Mg Caper 120 Mg PO DAILY Eliquis (Apixaban) 2.5 Mg Tab 2.5 Mg PO BID Carvedilol 12.5 Mg Tab 12.5 Mg PO BID Hospital Course 81 year-old male who originally presented to hospital on 06/30/17 because of 3 day history of fever or malaise. Patient had severe fatigue and was unable to get out of bed so [facility] was called and the patient was brought to the hospital and found to have 103 fever. Patient was found meets sepsis criteria. Workup was performed and patient was found to influenza A infection. She was admitted the hospital with IV fluids, Tamiflu. Patient continued have febrile illness and developed diarrhea while in the hospital with fecal incontinence. Stool studies were performed which did indicate clostridium difficile infection. Patient started on Flagyl. Patient is now afebrile. He is only had 1 bowel movement today. Patient has clinically improved. He is eager to go home. Patient states that his is also in the hospital and is waiting for her to be discharged so he can go home. Will plan discharge accordingly. Pt Condition on Discharge: Stable Discharge Disposition: Discharge Home Discharge Time: > 30 minutes Discharge Instructions DIET: Follow Instructions for: Heart Healthy Diet Activities you can perform: Regular-No Restrictions Activities to Avoid: Driving for 24 hrs Follow up Referrals: PCP Follow-up - 1 Week New Medications: Metronidazole (Flagyl) 500 Mg Tab 500 MG PO Q8HR for Clostridium difficile for 14 Days, TAB Oseltamivir (Tamiflu) 75 Mg Cap 75 MG PO BID for influenza A for 3 Days, #6 CAP Continued Medications: Apixaban (Eliquis) 2.5 Mg Tab 2.5 MG PO BID for Blood Clot Prevention, TAB 0 Refills Carvedilol (Carvedilol) 12.5 Mg Tab 12.5 MG PO BID, #60 TAB 0 Refills Diltiazem CD 24 HR (Diltiazem CD 24 HR) 120 Mg Caper 120 MG PO DAILY, #30 CAP 0 Refills Pravastatin (Pravastatin) 40 Mg Tab 40 MG PO DAILY for Cholesterol Management, #30 TAB 0 Refills Terazosin (Terazosin) 5 Mg Cap 5 MG PO HS, #30 CAP 0 Refills Jose G Paniagua Jul 02, 2017 15:12
== END 2017-07-02 17:00 | disposition home or self-care (01) ==
LOC: PHED 14:26 → PHEDA 16:25 → PH3B 18:23
PROVIDERS: ADMIT Hospitalist; ATTEND Hospitalist
DX: J10.1 Influenza due to other identified influenza virus with other respiratory manifestations (principal); A41.9 Sepsis, unspecified organism; A04.72 Enterocolitis due to Clostridium difficile, not specified as recurrent; F05 Delirium due to known physiological condition; I48.2 Chronic atrial fibrillation; R79.1 Abnormal coagulation profile; D68.9 Coagulation defect, unspecified; I11.9 Hypertensive heart disease without heart failure; E78.5 Hyperlipidemia, unspecified; Z79.899 Other long term (current) drug therapy; Z79.01 Long term (current) use of anticoagulants; Z86.73 Personal history of transient ischemic attack (TIA), and cerebral infarction without residual deficits; Z77.090 Contact with and (suspected) exposure to asbestos
CPT/HCPCS: 70450; 71010; 71250; 80048; 80053; 81001; 83605; 83735; 85025; 87040; 87205; 87493; 87506; 87804; 96360; 96361; 97162; 99285; G0378; G8987; G8988; J7030